=== PATIENT | male | born 1985 | race Caucasian/White ===

== ENCOUNTER 2016-08-28 22:29 | Emergency (ER) | payer OTHER, MEDICAID ==
[2016-08-28] MEDS ORDERED: TDAP ADULT 0.5 ML INJ (BOOSTRIX) IM ONE (22:52)
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
[2016-08-28] MEDS ORDERED: SKIN ADHESIVE (DERMABOND) 1 EACH TP ONE (23:28)
[2016-08-29] MEDS ORDERED: ACETAMINOPHEN 500 MG TAB PO ONE (00:27)
[2016-08-29 00:59] VITALS: BP 144/98; PULSE 111; RESP 18; TEMP 97.2; O2SAT 97
== END 2016-08-29 01:01 | disposition home or self-care (01) ==
PROC: 09QKXZZ Repair Nasal Mucosa and Soft Tissue, External Approach (ICD-10-PCS; principal; 2016-08-28)
DX: S02.2XXA Fracture of nasal bones, initial encounter for closed fracture (principal); S01.81XA Laceration without foreign body of other part of head, initial encounter; F17.200 Nicotine dependence, unspecified, uncomplicated; Z23 Encounter for immunization; Y01.XXXA Assault by pushing from high place, initial encounter; Y92.149 Unspecified place in prison as the place of occurrence of the external cause